=== PATIENT | male | born 1970 | race Two or more races ===

== ENCOUNTER 2022-09-27 11:46 | Inpatient (IN) | payer OTHER ==
[~2022-09-27] VITALS: Ht 182.9 cm; Wt 115.7 kg
[~2022-09-27 11:46] MED LIST: COLACE100 MG PO; MEDROLPACK PO; PERCOCET 5-3251 EACH PO; ULTRAM50 MG PO; ZESTRIL5 MG PO
[2022-10-08] MEDS ORDERED: ROSUVASTATIN CA20 MG (15:29)
[2022-10-08] MEDS ORDERED: ST. JOSEPH ASPI81 M2 (15:29)
[2022-10-08] MEDS ORDERED: GABAPENTIN300 M2 (15:29)
[2022-10-08] MEDS ORDERED: LORATADINE10 MG (15:29)
[2022-10-08] MEDS ORDERED: HYDROCORTISO453.6 G1 (15:30)
[2022-10-08] MEDS ORDERED: PERCOCET 5-3251 EACH PO (17:38)
[2022-10-08] MEDS ORDERED: AMOX-CLAV 875-1 EACH PO (17:38)
[2022-10-08] MEDS ORDERED: COLACE100 MG PO (17:39)
[2022-10-08] MEDS ORDERED: NEURONTIN800 MG PO (17:39)
[2022-10-08] MEDS ORDERED: MEDROLPACK PO (17:39)
== END 2022-10-10 11:04 | disposition home or self-care (01) | DRG 455 ==
LOC: O/R 10-08 05:40 → SURG 10-08 11:00 → SURH 10-08 23:33
PROVIDERS: ADMIT Orthopaedic Surgery Orthopaedic Surgery of the Spine; ATTEND Orthopaedic Surgery Orthopaedic Surgery of the Spine
PROC: 0SG1071 Fusion of 2 or more Lumbar Vertebral Joints with Autologous Tissue Substitute, Posterior Approach, Posterior Column, Open Approach (ICD-10-PCS; 2022-10-08)
PROC: 0ST20ZZ Resection of Lumbar Vertebral Disc, Open Approach (ICD-10-PCS; 2022-10-08)
PROC: 07DR0ZZ Extraction of Iliac Bone Marrow, Open Approach (ICD-10-PCS; 2022-10-08)
PROC: XRGC0R7 Fusion of 2 or more Lumbar Vertebral Joints using Custom-Made Anatomically Designed Interbody Fusion Device, Open Approach, New Technology Group 7 (ICD-10-PCS; principal; 2022-10-08 11:00)
DX: M48.062 Spinal stenosis, lumbar region with neurogenic claudication (principal); M51.36 Other intervertebral disc degeneration, lumbar region